=== PATIENT | male | born 1985 | race Caucasian/White ===

== ENCOUNTER 2023-10-18 08:04 | Day surgery (SDC) | payer BC ==
[~2023-10-18] VITALS: Ht 188 cm; Wt 100.9 kg
[~2023-10-18 08:04] MED LIST: LR 1,000 ML IV SCH; NO HOME MEDICATIONS
[2023-10-18] MEDS ORDERED: Ondansetron 4 MG/2 ML VIAL IV PRN (08:30)
[2023-10-18] MEDS ORDERED: Lidocaine PF 2% (20 MG/ML) 5 ML VIAL ONE (08:37)
[2023-10-18] MEDS ORDERED: SYNTHROID0.175 MG PO (08:43)
[2023-10-18 08:54] VITALS: BP 125/91; PULSE 95; TEMP 97.9
[2023-10-18 09:25] VITALS: BP 122/93; PULSE 92; TEMP 97.6
--- NOTE | 2023-10-18 09:25 | NUR ---
PATIENT AMBULATED TO CHAIR WITH STEADY GAIT, ASSIST OF 2. ALERT AND AWAKE. DENIES PAIN, NAUSEA AND SHORTNESS OF BREATH. BREATHING REGULAR AND UNLABORED ON ROOM AIR. SKIN WARM AND DRY. IV IN PLACE. NURSE HANDOFF COMPLETED IN ROOM. SEE CHART FOR VITAL SIGNS. PATIENT HAD WATER AND CHOCOLATE PUDDING. BOTH FOOD AND DRINK TOLERATED WELL. CALL LIGHT IN REACH. SPOUSE, JESSIKA, PRESENT IN ROOM. 0930: MET WITH PATIENT AND SPOUSE TO DISCUSS PROCEDURE.
[2023-10-18 09:30] VITALS: BP 124/80; PULSE 87
[2023-10-18 09:45] VITALS: BP 117/80; PULSE 80
--- NOTE | 2023-10-18 09:58 | NUR ---
0950: DISCHARGE TEACHING COMPLETED WITH PRINTED EDUCATION AND INSTRUCTIONS SENT HOME WITH PATIENT. PATIENT VERBALIZED UNDERSTANDING OF TEACHING. DENIES PAIN, NAUSEA AND SHORTNESS OF BREATH. TOLERATING FOOD AND DRINK. 0950: IV REMOVED. GAUZE AND COBAN PLACED OVER SITE. 0958: PATIENT DISCHARGED HOME WITH [facility] [employer].
== END 2023-10-18 09:58 | disposition home or self-care (01) ==
LOC: SDCO 08:04
DX: D12.5 Benign neoplasm of sigmoid colon (principal); K57.30 Diverticulosis of large intestine without perforation or abscess without bleeding; G47.33 Obstructive sleep apnea (adult) (pediatric); R93.5 Abnormal findings on diagnostic imaging of other abdominal regions, including retroperitoneum; R93.3 Abnormal findings on diagnostic imaging of other parts of digestive tract; R19.7 Diarrhea, unspecified; Z87.891 Personal history of nicotine dependence
CPT/HCPCS: J2704; J7120